=== PATIENT | male | born 1965 | race Caucasian/White ===

== ENCOUNTER 2017-01-06 10:30 | Emergency (ER) | payer OTHER ==
[2017-01-06 10:37] VITALS: RESP 16
[2017-01-06] MEDS ORDERED: LET GEL TOPICAL 1 EA SYR TP ONE (10:51)
[2017-01-06 11:52] LABS: COLOR YELLOW; LEUKOCYTE ESTERASE,URINE NEGATIVE (NEGATIVE); NITRITE,URINE NEGATIVE (NEGATIVE)
[2017-01-06 12:08] LABS: BACTERIA TRACE /hpf (NONE SEEN); MUCUS 3+ /lpf (NONE-1+)
[2017-01-06] MEDS ORDERED: IOPAMIDOL (ISOVUE-300) 100 ML BTL ONE (12:22)
[2017-01-06 13:04] VITALS: O2SAT 99
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
[2017-01-06 14:04] VITALS: BP 131/85; PULSE 83; TEMP 98.8
== END 2017-01-06 14:04 | disposition home or self-care (01) ==
DX: S20.211A Contusion of right front wall of thorax, initial encounter (principal); V18.0XXA Pedal cycle driver injured in noncollision transport accident in nontraffic accident, initial encounter; Y92.410 Unspecified street and highway as the place of occurrence of the external cause; Y99.8 Other external cause status; Y93.55 Activity, bike riding
CPT/HCPCS: 82947-QW; Q9967